=== PATIENT | female | born 1945 | race African-American/Black ===

== ENCOUNTER 2020-04-10 17:22 | Inpatient (IN) | payer MEDICARE, OTHER ==
[~2020-04-10] VITALS: Ht 162.6 cm; Wt 70.8 kg
[2020-04-10] MEDS ORDERED: ACETAMINOPHEN 325MG TABLET PO STA (18:25)
[2020-04-10] MEDS ORDERED: PIPERACILLIN/TAZ 3.375G PREMIX 50 ML IV ONE (18:30)
[2020-04-10] MEDS ORDERED: VANCOMYCIN 1 G PREMIX 200 ML IV ONE (18:30)
[2020-04-10 18:44] LABS: BASOPHILS % 0.5 % (0.0-2.0); HEMATOCRIT. 42.1 % (36.0-48.0); HEMOGLOBIN. 14.1 g/dL (12.0-16.0); LYMPHOCYTES % 8.9 % (20.0-50.0); MEAN CORPUSCULAR HEMOGLOBIN 29.7 pg (28.0-32.0); MEAN CORPUSCULAR VOLUME 88.6 fL (81.0-99.0); MEAN PLATELET VOLUME 8.6 fl (7.4-10.4); NEUTROPHILS % 81.6 % (40.0-76.0); PLATELET 138 x1000/uL (130-400); RED BLOOD CELL COUNT 4.75 mill/uL (4.2-5.4); RED CELL DISTRIBUTION WIDTH 13.9 % (11.6-14.6)
[2020-04-10 18:52] LABS: INR 1.1; PROTHROMBIN TIME 11.3 sec (9.6-11.0)
[2020-04-10 18:53] LABS: CHLORIDE 102 mEq/L (98-107)
[2020-04-10] MEDS ORDERED: ASPIRIN 325MG EC TABLET PO NR (20:00)
[2020-04-10] MEDS ORDERED: ONDANSETRON HCL 4MG/2ML INJ IV PRN (21:45)
[2020-04-10] MEDS ORDERED: MAGNESIUM/ALUMINUM HYDROXIDE/SIMETHICONE 30ML UDC PO PRN (21:45)
[2020-04-10] MEDS ORDERED: CLONIDINE 0.1MG TABLET PO PRN (21:45)
[2020-04-10] MEDS ORDERED: GUAIFENESIN 200MG/10ML SUGAR FREE UDC PO PRN (21:45)
[2020-04-10] MEDS ORDERED: CEFTRIAXONE 1 G PREMIX 50 ML IV SCH (22:00)
[2020-04-10] MEDS ORDERED: AZITHROMYCIN 500 MG in DEXT 5% WATER 250 ML IV SCH (23:00)
[2020-04-11] MEDS: DEXT 5%/0.45% NACL KCL 10MEQ/L 1,000 ML IV SCH ×2 (00:19→13:20)
[2020-04-11 05:33] LABS: HEMATOCRIT. 35.7 % (36.0-48.0); HEMOGLOBIN. 12.3 g/dL (12.0-16.0); MEAN CORPUSCULAR HEMOGLOBIN 30.5 pg (28.0-32.0); MEAN CORPUSCULAR VOLUME 88.2 fL (81.0-99.0); MEAN PLATELET VOLUME 8.8 fl (7.4-10.4); PLATELET 128 x1000/uL (130-400); RED BLOOD CELL COUNT 4.05 mill/uL (4.2-5.4); RED CELL DISTRIBUTION WIDTH 13.8 % (11.6-14.6)
[2020-04-11 05:41] LABS: CHLORIDE 101 mEq/L (98-107)
[2020-04-11] MEDS: ENOXAPARIN 40MG/0.4ML SYR SUBCUT SCH (11:00)
[2020-04-11 17:17] LABS: PLATELET ESTIMATE DECREASED
[2020-04-11] MEDS: ACETAMINOPHEN 325MG TABLET PO PRN (17:43)
[2020-04-12] MEDS ORDERED: CEFTRIAXONE 1 G PREMIX 50 ML IV SCH
[2020-04-12] MEDS: ACETAMINOPHEN 325MG TABLET PO PRN (08:51)
[2020-04-12] MEDS: ENOXAPARIN 40MG/0.4ML SYR SUBCUT SCH (09:00)
[2020-04-12 14:10] VITALS: BP 136/70
[2020-04-12 15:05] VITALS: BP 136/70
[2020-04-12 15:20] LABS: BASOPHILS % 0.3 % (0.0-2.0); HEMATOCRIT. 41.1 % (36.0-48.0); HEMOGLOBIN. 13.7 g/dL (12.0-16.0); LYMPHOCYTES % 16.7 % (20.0-50.0); MEAN CORPUSCULAR HEMOGLOBIN 29.5 pg (28.0-32.0); MEAN CORPUSCULAR VOLUME 88.5 fL (81.0-99.0); MEAN PLATELET VOLUME 8.7 fl (7.4-10.4); MONOCYTES % 8.6 % (2.0-8.0); NEUTROPHILS % 74.4 % (40.0-76.0); PLATELET 170 x1000/uL (130-400); RED BLOOD CELL COUNT 4.64 mill/uL (4.2-5.4); RED CELL DISTRIBUTION WIDTH 13.8 % (11.6-14.6)
[2020-04-12 15:34] LABS: CHLORIDE 101 mEq/L (98-107)
[2020-04-12 16:00] VITALS: BP 156/69
[2020-04-12] MEDS: DEXT 5%/0.45% NACL KCL 10MEQ/L 1,000 ML IV SCH ×2 (17:57→22:25)
[2020-04-12 20:00] VITALS: BP 122/79
[2020-04-12] MEDS ORDERED: AZITHROMYCIN 500 MG in DEXT 5% WATER 250 ML IV SCH (20:00)
[2020-04-12] MEDS ORDERED: CEFTRIAXONE 1,000 MG in DEXTROSE 5% WATER 50 ML IV SCH (21:00)
[2020-04-13] VITALS: BP 130/60
[2020-04-13 04:00] VITALS: BP 138/60
[2020-04-13 08:00] VITALS: BP 163/106
[2020-04-13] MEDS: ENOXAPARIN 40MG/0.4ML SYR SUBCUT SCH (08:58)
[2020-04-13 10:03] VITALS: BP_SYST 145; BP_SYST 163; BP_DIAS 106; BP_DIAS 86
[2020-04-13 12:00] VITALS: BP 129/71
[2020-04-13] MEDS: DEXT 5%/0.45% NACL KCL 10MEQ/L 1,000 ML IV SCH (15:40)
== END 2020-04-13 16:50 | disposition home or self-care (01) | DRG 871 ==
LOC: ER 17:22 → MICUSO 21:28 → EDBEDREQ 21:30 → EDBEDREQTM 21:30 → 8WST 04-12 10:44
PROVIDERS: ADMIT Hospitalist; ATTEND Hospitalist
DX: A41.89 Other specified sepsis (principal); U07.1 COVID-19; J12.82 Pneumonia due to coronavirus disease 2019; E43 Unspecified severe protein-calorie malnutrition; G93.49 Other encephalopathy; E11.9 Type 2 diabetes mellitus without complications; I10 Essential (primary) hypertension; R09.02 Hypoxemia; Z68.26 Body mass index [BMI] 26.0-26.9, adult; Z79.899 Other long term (current) drug therapy
CPT/HCPCS: 36415; 71045; 80053; 82140; 82728; 82962; 83605; 84145; 84484; 85025; 86140; 87635; 93005; 93970; 99291; J0456; J0696; J1650; J2543; J3370; J7060